=== PATIENT | male | born 2005 | race Caucasian/White ===

== ENCOUNTER 2024-01-06 09:18 | Emergency (ER) | payer MEDICAID, SELFPAY ==
[2024-01-06 09:34] VITALS: BP 128/72; PULSE 74; TEMP 37.4; O2SAT 99; BMI 22.3
--- NOTE | 2024-01-06 09:40 | XR_ITS ---
[address] [address] Patient Name: ELVIN STEIN MRN: [id number] date: 2005 Sex: M Assigned Patient Location: ER Current Patient Location: ER Accession/Order Number: [id number] Exam Date: 01/06/2024 09:45 Report Date: 01/06/2024 10:18 At the request of: VLADISLAV CYR Procedure: XR chest 1V EXAM: XR chest 1V HISTORY: Cough, fever COMPARISON: None FINDINGS/IMPRESSION: 1. Lungs are clear 2. No pneumothorax. No pleural effusion. 3. Heart size and mediastinal contours are normal 4. No acute osseous abnormality. 5. Upper abdominal bowel gas pattern is nonspecific. Electronically authenticated by: CRUZ MARR Date: 01/06/2024 10:18
--- NOTE | 2024-01-06 09:40 | ED.GENADUL1 ---
HPI HPI - General Adult General Chief complaint: Fever Stated complaint: UNDER ARM PAIN AND FEVER Time Seen by Provider: 01/06/24 09:37 Source: patient Mode of arrival: walk-in History of Present Illness HPI narrative: 18-year-old male presents for 1 week history of cough and fever. He states that his temperature was as high as 101 degrees at home. He has been coughing up some green phlegm. No vomiting or diarrhea. He also has some soreness in his left axilla and feels like there is some swelling. No trauma to that area. Related Data Previous Rx's ?Medication ?Instructions ?Recorded azithromycin 250 mg tablet See Rx Instructions PO .COMPLEX #6 01/06/24 (Zithromax Z-Yobani) tabs benzonatate 100 mg capsule 100 mg PO TID PRN cough #20 caps 01/06/24 Allergies Allergy/AdvReac Type Severity Reaction Status Date / Time No Known Drug Allergies Allergy Verified 01/06/24 09:39 Opioid HPI Opioid Management Most Recent Opioid Data: No Data to Display Review of Systems ROS Narrative A ten point review of systems is negative except as noted above. PFSH PFSH Social History Little interest or pleasure in doing things: not at all Feeling down, depressed, or hopeless: not at all Exam Narrative Exam Narrative: Nurses note and vital signs reviewed and patient is not hypoxic. General: The patient appears in no apparent distress. Patient is resting comfortably on cart. Skin: Warm, dry, no pallor noted. There is no rash noted. The left axilla is examined. There is no erythema or abscess. He may have a small palpable lymph node. Head: Normocephalic, atraumatic Eye: Normal conjunctiva, no drainage Ears, Nose, Mouth, and Throat: oral mucosa is moist. Nares patent. Cardiovascular: Regular Rate and Rhythm, not tachycardic Respiratory: Patient is in no distress, no accessory muscle use, lungs are clear to auscultation, no wheezing, rales or rhonchi Back: non-tender GI: Soft and nontender Musculoskeletal: No joint swelling, shoulder has full range of motion Neurological: A&O, normal speech Psychiatric: Cooperative Constitutional Vital Signs, click to edit/add: Last Vital Signs Temp 99.3 F 01/06/24 09:34 Pulse 74 01/06/24 09:34 Resp 18 01/06/24 09:34 BP 128/72 01/06/24 09:34 Pulse Ox 99 01/06/24 09:34 O2 Del Method Room Air 01/06/24 09:34 Course Vital Signs Vital signs: Vital Signs Temperature 99.3 F 01/06/24 09:34 Pulse Rate 74 01/06/24 09:34 Respiratory Rate 18 01/06/24 09:34 Blood Pressure 128/72 01/06/24 09:34 Pulse Oximetry 99 01/06/24 09:34 Oxygen Delivery Method Room Air 01/06/24 09:34 Temperature 99.3 F 01/06/24 09:34 Pulse Rate 74 01/06/24 09:34 Respiratory Rate 18 01/06/24 09:34 Blood Pressure 128/72 01/06/24 09:34 Pulse Oximetry 99 01/06/24 09:34 Oxygen Delivery Method Room Air 01/06/24 09:34 Medical Decision Making MDM Narrative Medical decision making narrative: Influenza, COVID, and chest x-ray are negative. He is prescribed Zithromax and Tessalon. Treatment diagnosis and follow-up were discussed with the patient. Differential Diagnosis Differential Diagnosis: COVID, influenza, pneumonia, URI Lab Data Lab results reviewed: Yes I reviewed the patient's lab results Labs: Lab Results 01/06/24 Range/Units 09:49 Influenza Type A Ag Negative Influenza Type B Ag Negative SARS-CoV-2 Ag (CV2AG) Negative (NEGATIVE) Discharge Plan Discharge Chief Complaint: Fever Clinical Impression: Upper respiratory infection Patient Disposition: Home, Self-Care Time of Disposition Decision: 10:43 Condition: Good Mode of Transportation: Private Vehicle Prescriptions / Home Meds: New azithromycin [Zithromax Z-Yobani] 250 mg tablet See Rx Instructions .ROUTE .COMPLEX Qty: 6 0RF Rx Instructions: For 250 mg dose pack: take 500 mg today (day 1), then 250 mg for 4 days (days 2-5) benzonatate 100 mg capsule 100 mg PO TID PRN (Reason: cough) Qty: 20 0RF Print Language: Danish Instructions: Upper Respiratory Infection (ED) Referrals: CAMERON RAMSEY [Primary Care Provider] - 1 week
[2024-01-06 10:13] LABS: Influenza Virus A Antigen Negative; Influenza Virus B Antigen Negative
[2024-01-06 10:14] LABS: Internal Control Within Normal Limits; SARS-CoV-2 Ag NEGATIVE (NEGATIVE)
== END 2024-01-06 10:49 | disposition home or self-care (01) ==
PROVIDERS: Emergency Provider Emergency Medicine; PCP Nurse Practitioner Family
DX: J06.9 Acute upper respiratory infection, unspecified (principal); Z20.822 Contact with and (suspected) exposure to COVID-19
CPT/HCPCS: 71045; 87804; 87811; 99284